=== PATIENT | male | born 1945 | race Caucasian/White ===

== ENCOUNTER 2024-09-14 01:22 | Emergency (ER) | payer OTHER ==
[~2024-09-14] VITALS: Ht 182.9 cm; Wt 98.0 kg
[2024-09-14 01:34] VITALS: TEMP 96.8
[2024-09-14 01:43] LABS: MEAN PLATELET VOLUME 8.3 FL (7.4-10.4); RED CELL DISTRIBUTION WIDTH 12.9 % (11.5-14.5)
[2024-09-14 02:02] LABS: CREATININE 1.44 MG/DL (0.60-1.10); PRO BRAIN NATRIURETIC PEPTIDE 40 PG/ML (0-450); TOTAL CARBON DIOXIDE 30.2 MMOL/L (24-32); eCRCL 46 ML/MIN; eGFR 47 ML/MIN
--- NOTE | 2024-09-14 02:18 | Physician Documentation ---
History of Present Illness ~ Chief Complaint: Chest Pain Stated Complaint: SOB Time Seen by MD: 02:05 Mode of Arrival: Ambulatory HPI This is a 79-year-old gentleman with a family history of coronary artery disease, no personal history of coronary artery disease or hypertension or diabetes mellitus or hyperlipidemia or any other risk factors, comes in for evaluation of substernal chest pain that he describes as sharp. He gradually developed it over some time. He states that he spent a month in [place] in the damp climate, exposed to dust and there is particles. He feels that he got lung disease as a result of the. Today he developed a fever, and chills and felt extremely hot and sweaty despite of air conditioning being on full blast. The palliating or aggravating factors for this chest pain. He has not upcoming cardiac workup appointment. He is currently traveling from [place] to [place]. No concern for tobacco, alcohol or illicit substances use Medication Reconciliation Allergies: Coded Allergies: shellfish derived (Verified Allergy, Unknown, 09/14/24) states no issues with contrast Review of Systems ROS 10 point review of systems was performed and unless noted above in HPI is negative for acute process/complaint. Physical Exam Vital Signs: Temperature: 96.8, Source: Temporal, Heart Rate: 56, Respiratory Rate: 12, BP: 137/82, Pulse Oximetry: 99, Weight: 98.000 Oxygen Flow Rate: 0 Physical Exam GENERAL: Awake, alert, oriented, GCS 15, no apparent distress, non-toxic appearing, answers questions, follows commands appropriately. HEENT: Atraumatic, normocephalic, pupils equal, extraocular muscles intact, sclerae anicteric, mucus membranes moist, oropharynx is clear, no stridor. NECK: supple, full active range of motion, trachea midline, no thyromegaly, no lymphadenopathy, no JVD. CARDIOVASCULAR: regular rate/rhythm, no murmurs/gallops/rubs, Pulses are 2+ in all extremities and symmetric. Capillary refill less than 2 seconds. PULMONARY: Nonlabored, good air movement ,no respiratory distress, speaking in full sentences, clear to auscultation bilaterally, no wheezing, no ronchi, no rales, no accessory muscle use. GASTROINTESTINAL: Soft, non-tender, non-distended, normal active bowel sounds, no organomegaly, no pulsatile masses, no CVA tenderness. NEUROLOGIC: Lucid with normal mental status. Normal facial symmetry. Moves all extremities symmetrically and with purpose. No truncal ataxia. Speech is fluid without evidence of dysarthria or aphasia, no focal deficits appreciated. MUSCULOSKELETAL: There is full range of motion of all extremities. There is no joint pain or joint swelling or joint erythema. There is no muscle pain or tenderness or swelling. EXTREMITIES: warm, well-perfused, no cyanosis, no clubbing, no edema, no acute deformities. Skin: warm, dry, no rashes or lesions, no jaundice, no petechiae orpurpura. No ecchymosis. PSYCHIATRIC: Normal affect, normal insight, normal concentration. Focused exam: [] Progress Results/Orders Results/Orders Orders - JW EAGLE DO Chest,Single View (09/14/24 02:02) Monitor (09/14/24 01:36) Saline Lock (09/14/24 01:36) Oxygen (09/14/24 01:36) Electrocardiogram (09/14/24 01:36) Hs Troponin I W Calculations (09/14/24 04:36) Completed Orders - JW EAGLE DO Chest,Single View (09/14/24 02:02) Cbc/Diff (09/14/24 01:36) BMP (09/14/24 01:36) PBNP (09/14/24 01:36) Hs Troponin I W Calculations (09/14/24 01:36) Hs Troponin I W Calculations (09/14/24 03:36) Vital Signs 09/14/24 09/14/24 09/14/24 09/14/24 01:34 01:48 01:53 03:21 Temp 96.8 Pulse 62 56 55 Resp 15 16 12 16 B/P (MAP) 132/87 137/82 (100) 144/79 (100) Pulse Ox 98 99 98 O2 Flow Rate 0 0 09/14/24 04:29 Pulse 60 Resp 14 B/P (MAP) 153/79 (103) Pulse Ox 98 O2 Flow Rate 0 Laboratory Tests Test 09/14/24 01:31 09/14/24 03:33 White Blood Count 4.6 Red Blood Count 4.57 L Hemoglobin 14.9 Hematocrit 43.4 Mean Corpuscular Volume 95.1 Mean Corpuscular Hemoglobin 32.5 H Mean Corpuscular Hemoglobin Concent 34.2 Red Cell Distribution Width 12.9 Platelet Count 156 Mean Platelet Volume 8.3 Neutrophils (%) (Auto) 49.7 Lymphocytes (%) (Auto) 29.7 Monocytes (%) (Auto) 17.1 H Eosinophils (%) (Auto) 2.4 Basophils (%) (Auto) 1.1 H Neutrophils # (Auto) 2.3 Lymphocytes # (Auto) 1.4 Monocytes # (Auto) 0.8 Eosinophils # (Auto) 0.1 Basophils # (Auto) 0.0 CBC Comment Sodium Level 138 Potassium Level 3.8 Chloride Level 103 Carbon Dioxide Level 30.2 Anion Gap 5 L Blood Urea Nitrogen 28 H Creatinine 1.44 H Estimated GFR/1.73 m2 47 BUN/Creatinine Ratio 19.4 Glucose Level 102 Calcium Level 8.6 Troponin I High Sensitivity 10 10 Pro-B-Type Natriuretic Peptide 40 Albumin 3.9 Chemistry Comments Troponin I High Sens Percent Delta 0 Troponin I Hi Sens Absolute Change 0 EKG/XRAY/CT/US/VASC/MRI EKG : Additional Comment EKG was obtained and interpreted by myself showing sinus bradycardia, rate of 56, slightly prolonged [place] interval, narrow QRS, no QT prolongation, normal axis, no STEMI Heart Score: Heart Score Response (Comments) Value History Slightly Suspicious 0 EKG Normal 0 Age >65 2 Risk Factors No known risk factors 0 Troponin Normal limit 0 Total 2 Medical Decision Making Findings Facility Status: [facility], [facility] process The plan was discussed with the patient, who demonstrates clear understanding of the plan and is in agreement with the plan unless otherwise noted in the chart. All questions have been answered, all concerns were addressed unless otherwise documented. I was available throughout their ED stay for frequent reassessment and questions. Differential Diagnoses (considered and possible or likely): [Differential diagnosis considered includes chest wall pain, pleurisy, pneumonia, pulmonary embolus, GERD, esophagitis, gastritis, anxiety, stress reaction, costochondritis, acute coronary syndrome, aortic dissection, pericarditis, myocarditis, or pneumothorax.] ??Differential Diagnoses (considered and unlikely, not requiring evaluation currently): [Aortic/great vessels dissection was considered but it is unlikely based on absence of ripping, tearing, migratory chest pain, absence of syncope or focal neurologic deficits, physical examination indicating equal and symmetric pulses.] MDM Data Please see HPI for the following: Independent Historians and external Records Review. Historian: [Patient] Independent Historians: ?[None] Medication Management: [Reviewed medication list] Social History and determinants: [Reviewed] Please see the body of the note for the following: Any independent interpretations of ECG, imaging studies. All vitals signs/haemodynamics, ordered tests were independently reviewed and interpreted by myself. Nursing triage complaint and vitals reviewed, additional nursing notes were reviewed as available and I agree unless otherwise noted or documented in contradiction in the chart Vital Signs: Independently reviewed Labs: Independently interpreted Imaging: Independently interpreted Old Medical Records: Independently reviewed, see HPI for relevant summary and information Pulse Oximetry: [100%] interpreted as [normal on room air] by me [Assistant Tennis Coach: Bradycardic Rate, Regular rhythm, no ectopy, sinus bradycardia. reviewed and interpreted by me] Additionally notably showing: [Hemodynamics reviewed. The patient is not febrile, not tachycardic, no evidence of hypotension respiratory distress. CBC normal metabolic panel shows CRISTINA versus CKD. Normal BNP. Two normal troponins. She is dehydration. Chest x-ray is unremarkable for acute disease. ] Tests considered but not ordered include: [CTA has been considerably the mass suspicion for PE is low as he did not have any continuous travel, wells of 0] Social Determinants of Health Impact: Patient was evaluated in [facility], or [facility] [place] to healthcare due to below par ratio of patient to medical providers. [] Comorbid Conditions Impacting Present Evaluation and Care/Treatment: [None reported with the patient] Management Discussions with other Healthcare Providers: [None] Treatment and Disposition Medication Management (Given or considered): []. See EMR for details Consideration for Hospitalization/Escalation/Deescalation of Care: Admission for observation has been considered, [however the patient is able to tolerate p.o., their symptoms are controlled, they are able to rely on oral medications, and their chief complaint/diagnosis can be managed on outpatient basis.] ?ED Course:?[Patient reports that he recently has been diagnosed with a subacute/chronic sinusitis, and had taking a course of azithromycin with persistent symptoms. He is inquiring if he can get a 2nd line antibiotic.] Considered admit inpatient for a workup, however he prefers to travel back home and has a assured follow-up with a cardiac workup soon. ?Shared decision making:?[Patient is hemodynamically stable for discharge home with follow with their primary care provider. [ ] Specific and cautious return precautions provided and discussed with full understanding. Any incidental findings were also discussed and follow up recommendations given. [] All questions answered. Patient/family were able to verbalize back return precautions. Patient/family agree to plan. Copies of imaging and laboratory studies were provided.] Code status:?FULL Please see the full Electronic Medical Record for full details of nursing documentation, medications list, other records of complete past medical history and conditions, vital signs, laboratory studies, and any radiologic study interpretations by radiologists. Portions of this note were completed using [employer] dictation software and as a result there may exist minor errors in spelling. I have reviewed elements of past family and social history and agree as included in note. Departure Disposition: 01 HOME / SELF CARE / HOMELESS Impression: Primary Impression: Chest pain Additional Impression: Sinusitis Discharge Instructions: Nonspecific Chest Pain, Adult, Sinus Endoscopy, Care After Referrals: NO PRIMARY CARE PROVIDER (PCP) Prescriptions Amox Tr/Potassium Clavulanate (Augmentin 875-125 Tablet) 1 Each Tablet 1 TAB PO Q12H for 10 Days, #20 TAB Prov: JW EAGLE DO 09/14/24 Signature Scribe Signature: No scribe Attestation: This note accurately reflects clinical decisions, work performed by myself, DO SHAGUFTA Clinton NICHOLAS M DO Sep 14, 2024 02:18
--- NOTE | 2024-09-14 02:25 | RADIOLOGY REPORT ---
CHEST RADIOGRAPH Indication: CP Technique: Single frontal view of the chest was obtained COMPARISON: None FINDINGS: Lines and Tubes: None Lungs: Clear Pleura: No effusion. No pneumothorax. Cardiomediastinal contours: Unremarkable. Atherosclerotic vascular calcifications. Bones: Unremarkable IMPRESSION: 1. No acute disease.
[2024-09-14 04:29] VITALS: BP 153/79; PULSE 60; RESP 14; O2SAT 98
[2024-09-14] MEDS ORDERED: AMOX-117 PO (04:42)
--- NOTE | 2024-09-14 07:04 | ELECTROCARDIOGRAPH REPORT ---
[facility] Test Date: 2024-09-14 Test Time: 01:27:00 Pat Name: ADRIANA FINNEY Department: EMERGENCY ROOM [id number] Room: Gender: M Student Truck Driver: : 1945 Requested By: JW EAGLE Order Number: [id number] Reading MD: Dr. Duong Armas Measurements Intervals [place] Rate: 56 P: 60 IN: 211 QRS: 27 QRSD: 91 T: 56 QT: 422 QTc: 408 Interpretive Statements Sinus bradycardia Atrial premature complexes Abnormal R-wave progression, early transition Baseline wander in lead(s) V2 Electronically Signed On 09-14-2024 19:29:[address] Duong Armas Please click the below link to view image of tracing.
== END 2024-09-14 05:07 | disposition home or self-care (01) ==
LOC: ER 01:23
DX: J32.9 Chronic sinusitis, unspecified (principal); R07.9 Chest pain, unspecified; R50.9 Fever, unspecified; R06.02 Shortness of breath; Z91.013 Allergy to seafood
CPT/HCPCS: 36415; 71045; 80048; 83880; 84484; 85025; 93005; 99285